=== PATIENT | female | born 1950 | race Caucasian/White ===

== ENCOUNTER 2019-10-29 09:55 | Outpatient (CLI) | payer MEDICARE, SELFPAY ==
--- NOTE | ~2019-10-29 | MM_ITS ---
EXAMINATION: MM screening [facility] BI w michael HISTORY: Screening mammogram TECHNIQUE: Craniocaudal and mediolateral oblique 3-D tomosynthesis images were obtained and synthetic 2-D images were generated. CAD analysis was submitted and interpreted. COMPARISON: Comparison to multiple prior studies sequentially, with oldest reviewed study dated 09/22. BREAST PARENCHYMAL COMPOSITION: There are scattered areas of fibroglandular density. FINDINGS: There is no evidence of suspicious mass, calcification, or architectural distortion to sugg est malignancy in either breast. There has been no suspicious interval change. IMPRESSION: 1. No mammographic evidence of malignancy. 2. Recommend routine screening mammography in one year. BI-RADS Category 1: Negative Reviewed, dictated and finalized at location A.
== END 2019-10-29 09:56 | disposition home or self-care (01) ==
PROVIDERS: PCP Family Medicine; Visit Provider Obstetrics & Gynecology
DX: Z12.31 Encounter for screening mammogram for malignant neoplasm of breast (principal)
CPT/HCPCS: 77063; 77067

== ENCOUNTER 2019-11-18 09:43 | Outpatient (CLI) | payer MEDICARE, SELFPAY ==
--- NOTE | ~2019-11-18 | CT_ITS ---
EXAMINATION: CT chest high resolution wo fl DATE: 11/18/2019 10:17 INDICATION: Cough TECHNIQUE: Computed tomography (CT) of the chest was performed without intravenous contrast. The dose -length product (DLP) was 479.98 mGy-cm. Automated exposure control and iterative reconstruction tech nique were employed. COMPARISON: None FINDINGS: There is mild dependent atelectasis. The lungs are free of focal airspace opacities. There is no pleural effusion or pneumothorax. Calcified pulmonary nodules and calcified right hilar lymph n odes are consistent with old granulomatous disease. There is a 1.8 cm nodule of the left thyroid lobe . Calcified coronary artery atherosclerosis is noted. No pathologically enlarged thoracic lymph nodes are identified. The heart size is normal. There are changes of gastric lap band surgery. The gallbla dder is surgically absent. There is moderate thoracic spondylosis. IMPRESSION: 1. No acute cardiopulmonary abnormality. Reviewed, dictated and finalized at location A.
== END 2019-11-18 09:44 | disposition home or self-care (01) ==
PROVIDERS: PCP Family Medicine; Visit Provider Internal Medicine Critical Care Medicine
DX: R05 Cough (principal)
CPT/HCPCS: 71250

== ENCOUNTER 2020-02-05 09:49 | Outpatient (CLI) | payer MEDICARE, SELFPAY | END 2020-02-05 09:50 | disposition home or self-care (01) | LOC: ANHLAB 09:50 | PROVIDERS: PCP Family Medicine; Visit Provider Internal Medicine Critical Care Medicine | DX: R05 Cough (principal); J30.9 Allergic rhinitis, unspecified | CPT/HCPCS: 36415; 82785; 86003 ==

== ENCOUNTER 2020-11-04 09:47 | Outpatient (CLI) | payer MEDICARE, SELFPAY ==
--- NOTE | ~2020-11-04 | MM_ITS ---
EXAMINATION: MM screening [facility] BI w michael HISTORY: Screening TECHNIQUE: Craniocaudal and mediolateral oblique 3-D tomosynthesis images were obtained and synthetic 2-D images were generated. CAD analysis was submitted and interpreted. COMPARISON: Comparison to multiple prior studies sequentially, with oldest reviewed study dated 09/22. BREAST PARENCHYMAL COMPOSITION: There are scattered areas of fibroglandular density. FINDINGS: There is no evidence of suspicious mass, calcification, or architectural distortion to sugg est malignancy in either breast. There has been no suspicious interval change. IMPRESSION: 1. No mammographic evidence of malignancy. 2. Recommend routine screening mammography in one year. BI-RADS Category 1: Negative Reviewed, dictated and finalized at location A.
== END 2020-11-04 09:48 | disposition home or self-care (01) ==
LOC: ANHIMG 09:54
PROVIDERS: PCP Family Medicine; Visit Provider Nurse Practitioner
DX: Z12.31 Encounter for screening mammogram for malignant neoplasm of breast (principal)
CPT/HCPCS: 77063; 77067

== ENCOUNTER 2020-12-09 16:03 | Outpatient (CLI) | payer MEDICARE, SELFPAY ==
--- NOTE | ~2020-12-09 | XR_ITS ---
XR abdomen/kub 1V 12/09/2020 16:23 INDICATION: Car scopic hematuria TECHNIQUE: KUB COMPARISON: CT dated 01/23/2013 FINDINGS: Bowel gas pattern is normal. There is no evidence of free air, mass, organomegaly, ascites or obstruction. No abnormal calculi are seen. The bones appear intact. There is a laparoscopic adj ustable gastric band. IMPRESSION: 1: No acute abdominal abnormality identified. Reviewed, dictated and finalized at location A.
--- NOTE | ~2020-12-09 | CT_ITS ---
EXAMINATION: CT abdomen pelvis wo/w con DATE: 12/09/2020 16:59 INDICATION: Microscopic hematuria TECHNIQUE: Computed tomography (CT) of the abdomen and pelvis was performed without and with 130 cc O mnipaque 350 intravenous contrast. The dose-length product was 2818.60 mGy-cm. Automated exposure con trol and iterative reconstruction technique were employed. COMPARISON: CT dated 01/23/2013. FINDINGS: Lung bases are unremarkable. Heart size normal. No significant pleural or pericardial effus ion. Small hiatal hernia. There is a laparoscopic adjustable gastric band. No renal/ureteral stones o r hydronephrosis. The liver, spleen, pancreas, adrenal glands and kidneys are unremarkable. Ureters are normal in cours e and caliber. Bladder is unremarkable. Gallbladder is surgically absent. Nonobstructive bowel gas pa ttern. Colonic diverticulosis without evidence for diverticulitis. There is osteoarthritis of the hip s. There is mild lower thoracic and lumbar spondylosis. IMPRESSION: 1. No acute abdominal abnormality. No findings to account for hematuria. Reviewed, dictated and finalized at location A.
[2020-12-09 16:36] LABS: Estimated Glomerular Filt Rate > 60
== END 2020-12-09 16:04 | disposition home or self-care (01) ==
PROVIDERS: PCP Family Medicine; Visit Provider Nurse Practitioner Adult Health
DX: R31.29 Other microscopic hematuria (principal)
CPT/HCPCS: 74018; 74178; Q9967

== ENCOUNTER 2021-11-24 09:56 | Outpatient (CLI) | payer MEDICARE, SELFPAY ==
--- NOTE | ~2021-11-24 | MM_ITS ---
EXAMINATION: MM screening [facility]ura BI w michael HISTORY: Screening mammogram TECHNIQUE: Craniocaudal and mediolateral oblique 3-D tomosynthesis images were obtained and synthetic 2-D images were generated. CAD analysis was submitted and interpreted. COMPARISON: 11/04/2020, 10/29/2019, 10/03/2018 bilateral screening mammogram examinations BREAST PARENCHYMAL COMPOSITION: There are scattered areas of fibroglandular density. FINDINGS: There is no evidence of suspicious mass, calcification, or architectural distortion to sugg est malignancy in either breast. There has been no suspicious interval change. IMPRESSION: 1. No mammographic evidence of malignancy. 2. Recommend routine screening mammography in one year. BI-RADS Category 1: Negative Reviewed, dictated and finalized at location A.
== END 2021-11-24 09:57 | disposition home or self-care (01) ==
LOC: ANHIMG 09:57
PROVIDERS: PCP Family Medicine; Visit Provider Obstetrics & Gynecology Gynecology
DX: Z12.31 Encounter for screening mammogram for malignant neoplasm of breast (principal)
CPT/HCPCS: 77063; 77067

== ENCOUNTER → 2022-09-12 11:03 | Outpatient (CLI) | payer MEDICARE, SELFPAY ==
--- NOTE | ~2022-09-12 | XR_ITS ---
Clinical Indication: Chronic cough PA and lateral views of the chest: Comparison: 02/13/2018 Findings: The lungs are clear, without evidence of focal consolidation or pleural effusion. Cardiome diastinal silhouette is within normal limits. Bones and soft tissues are unremarkable. Impression: Normal chest. Reviewed, dictated and finalized at location . Impression: Normal chest.
== END ==
PROVIDERS: PCP Family Medicine; Visit Provider Nurse Practitioner Gerontology
DX: R05.3 Chronic cough (principal)
CPT/HCPCS: 71046

== ENCOUNTER 2022-11-01 01:31 | Day surgery (SDC) | payer MEDICARE, SELFPAY ==
[2022-10-19 10:39] VITALS: BMI 40.4
[2022-11-01 11:50] VITALS: BP 149/92; PULSE 96; RESP 20; TEMP 36.5; O2SAT 97
[2022-11-01] MEDS: LACTATED RINGERS 1,000 ML 150 ML IV CONT (12:06)
--- NOTE | 2022-11-01 12:32 | WPDHPUPDATE1 ---
History and Physical Update Update Date/Time: 11/01/22 12:32 History and Physical has been reviewed, including an updated exam of the patient. There are NO changes in the patient's condition. Risks, benefits, and alternatives have been discussed and questions answered. Patient agrees to proceed with procedure.
--- NOTE | 2022-11-01 12:33 | WPDANESEPPF ---
Anes - Initial Pre Proc Eval Procedure: Operation Date: 11/01/22 13:00 Proposed Procedures p Esophagogastroduodenoscopy & Colonoscopy - Dylan Vargas MD Date/Time: 11/01/22 12:33 Surgeon: Dylan Vargas MD Pre Op Diagnosis: chronic cough, rectal bleeding Patient Data Age: 72 Gender: F Height: 1.68 m Weight: 106.1 kg Last Vital Signs Temp 97.7 F 11/01/22 11:50 Pulse 96 11/01/22 11:50 Resp 20 11/01/22 11:50 BP 149/92 H 11/01/22 11:50 Pulse Ox 97 11/01/22 11:50 O2 Del Method Room Air 11/01/22 11:50 Allergies Allergy/AdvReac Type Severity Reaction Status Date / Time No Known Allergies Allergy Verified 11/01/22 11:49 Home Medications Medication Instructions Recorded Confirmed Type calcium carbonate 600 mg calcium 600 mg PO DAILY 05/23/19 10/19/22 History (1,500 mg) tablet (Calcium) aspirin 81 mg tablet,delayed 81 mg PO .COMPLEX 01/30/22 10/19/22 History release (Adult Low Dose Aspirin) vibegron 75 mg tablet (Gemtesa) 75 mg PO DAILY 01/30/22 10/19/22 History montelukast 10 mg tablet 10 mg PO DAILY #90 tabs 09/12/22 10/19/22 Rx (Singulair) ascorbic acid (vitamin C) 500 mg 500 mg PO DAILY 10/19/22 10/19/22 History tablet losartan 50 mg-hydrochlorothiazide 1 tablet PO DAILY 10/19/22 10/19/22 History 12.5 mg tablet rosuvastatin 10 mg tablet 10 mg PO DAILY 10/19/22 10/19/22 History sodium chloride 0.65 % nasal spray 2 spray intranasal Q4H PRN other 10/19/22 10/19/22 History aerosol (Saline Nasal) zinc 50 mg tablet 50 mg PO DAILY 10/19/22 10/19/22 History Patient hx anesthesia problems: none Family hx anesthesia problems: none Results Review: All pre-operative results and documents have been reviewed as part of the pre-operative evaluation. [facility] Past Medical History Medical History Elevated BP without diagnosis of hypertension Lipid screening Morbid obesity Surgical History Surgical History H/O total hysterectomy H/O total knee replacement LAP-BAND surgery status Social History Social History Social History: Smoking status: Former smoker Tobacco type: cigarettes Second hand tobacco smoke exposure: No Alcohol intake: never Substance use: never Substance use type: does not use Living arrangements: with family Occupation/Education: retired Gender identity (if verbalized by the patient): Female Sexual Orientation (if Verbalized by the Patient): Straight or Heterosexual Spiritual care concerns: No Anes - Eval Final PreProcedure Day of Procedure 11/01/22 12:33 Patient weight: obese Heart: regular rate and rhythm Lungs: clear to auscultation Airway: Mallampati scale class II Neurological: alert and oriented Last oral intake: >/= 8 hours ASA classification: III Emergent: no Anesthetic plan: proceed Anesthesia type and monitoring: general GIVS and standard monitoring Results Review: All pre-operative results and documents have been reviewed as part of the pre-operative evaluation. Informed Consent: The patient's anesthetic plan and its attendant risks and benefits were discussed with the patient/family/POA. Questions were solicited and answers provided to the satisfaction of the patient/family/POA.
--- NOTE | 2022-11-01 12:43 | SUR.OPER ---
EGD start 1236 end 1239, Colonoscopy start 1243
[2022-11-01 12:53] VITALS: BP 134/101; PULSE 85; RESP 17; O2SAT 96
[2022-11-01 13:03] VITALS: BP 106/62; PULSE 72; RESP 23; O2SAT 99
[2022-11-01 13:13] VITALS: BP 113/64; PULSE 74; RESP 17; O2SAT 100
--- NOTE | 2022-11-21 08:15 | PM.HPGS ---
History of Present Illness History of Present Illness Consent: Risks, benefits, and alternatives have been discussed and questions answered. Patient agrees to proceed with procedure. Chief complaint: chronic cough, rectal bleeding Narrative: Natasha Dale is a 72 year old female with cough and rectal bleeding Review of Systems Constitutional: Constitutional: Denies headache(s) and Denies weakness Eyes: Eyes: Denies blurry vision ENT: Reports Normal hearing present, Denies headache(s) and Denies neck pain Cardiovascular: Cardiovascular: Denies chest pain and Denies dyspnea Respiratory: Respiratory: Denies dyspnea Gastrointestinal: Gastrointestinal: Reports no additional gastrointestinal complaints Genitourinary: Genitourinary: Denies dysuria Musculoskeletal: Musculoskeletal: Denies neck pain Integumentary/Breasts: Skin/Breast: Denies dry skin Neurologic: Reports Normal hearing present, Denies headache(s) and Denies weakness Psychiatric: Psychiatric: Denies anxiety Endocrine: Endocrine: Denies change in body appearance Hematologic/Lymphatic: Hematologic/Lymphatic: Denies easy bleeding Allergic/Immunologic: Allergic/Immunologic: Denies urticaria PMFSH Past Medical History Medical History Elevated BP without diagnosis of hypertension Lipid screening Morbid obesity Surgical History Surgical History H/O total hysterectomy H/O total knee replacement LAP-BAND surgery status Social History Social History Social History: Smoking status: Former smoker Tobacco type: cigarettes Second hand tobacco smoke exposure: No Alcohol intake: never Substance use: never Substance use type: does not use Living arrangements: with family Occupation/Education: retired Gender identity (if verbalized by the patient): Female Sexual Orientation (if Verbalized by the Patient): Straight or Heterosexual Spiritual care concerns: No Meds Home Medications and Allergies Home Medications Medication Instructions Recorded Confirmed Type calcium carbonate 600 mg calcium 600 mg PO DAILY 05/23/19 10/19/22 History (1,500 mg) tablet (Calcium) aspirin 81 mg tablet,delayed 81 mg PO .COMPLEX 01/30/22 10/19/22 History release (Adult Low Dose Aspirin) vibegron 75 mg tablet (Gemtesa) 75 mg PO DAILY 01/30/22 10/19/22 History montelukast 10 mg tablet 10 mg PO DAILY #90 tabs 09/12/22 10/19/22 Rx (Singulair) ascorbic acid (vitamin C) 500 mg 500 mg PO DAILY 10/19/22 10/19/22 History tablet losartan 50 mg-hydrochlorothiazide 1 tablet PO DAILY 10/19/22 10/19/22 History 12.5 mg tablet rosuvastatin 10 mg tablet 10 mg PO DAILY 10/19/22 10/19/22 History sodium chloride 0.65 % nasal spray 2 spray intranasal Q4H PRN other 10/19/22 10/19/22 History aerosol (Saline Nasal) zinc 50 mg tablet 50 mg PO DAILY 10/19/22 10/19/22 History omeprazole 20 mg tablet,delayed 20 mg PO .daily #30 tabs 11/01/22 11/01/22 Rx release Allergies Allergy/AdvReac Type Severity Reaction Status Date / Time No Known Allergies Allergy Verified 11/01/22 11:49 Exam Const: General: comfortable and no acute distress HENMT: Face/Nose/Sinus: Normal nares present Eyes: General: appearance normal, both eyes and all related structures Neck: Neck: no JVD Resp: Auscultation: clear to auscultation bilaterally Cardio: Rate: regular rate Rhythm: regular rhythm GI: Inspection: non-distended GI Palp: Yes Soft to palpation Skin: General skin exam: normal color Neuro: General: gait normal Speech: normal speech Extrem: General: normal to inspection Psych: Mental Status: mental status grossly normal Assessment and Plan Assessment and plan (1) Chronic cough: Code(s): R05.3 - Chronic cough Status: Acute A
== END 2022-11-01 13:23 | disposition home or self-care (01) ==
PROVIDERS: PCP Family Medicine; Visit Provider Internal Medicine Gastroenterology
PROC: 0DJ08ZZ Inspection of Upper Intestinal Tract, Via Natural or Artificial Opening Endoscopic (ICD-10-PCS; CPT 43235; principal; 2022-11-01 13:00)
DX: Z12.11 Encounter for screening for malignant neoplasm of colon (principal); K57.30 Diverticulosis of large intestine without perforation or abscess without bleeding; K64.8 Other hemorrhoids; K92.1 Melena; K44.9 Diaphragmatic hernia without obstruction or gangrene; K29.50 Unspecified chronic gastritis without bleeding; Z79.82 Long term (current) use of aspirin; E66.9 Obesity, unspecified; Z68.37 Body mass index [BMI] 37.0-37.9, adult; Z87.891 Personal history of nicotine dependence; Z98.84 Bariatric surgery status
CPT/HCPCS: 43239; G0121; 88305; J2704; J7120

== ENCOUNTER 2023-04-10 09:42 | Outpatient (CLI) | payer MEDICARE, SELFPAY ==
--- NOTE | ~2023-04-10 | MM_ITS ---
EXAMINATION: MM screening [facility] BI w michael HISTORY: Screening TECHNIQUE: Craniocaudal and mediolateral oblique 3-D tomosynthesis images were obtained and synthetic 2-D images were generated. CAD analysis was submitted and interpreted. COMPARISON: Comparison to multiple prior studies sequentially, with oldest reviewed study dated 09/25. BREAST PARENCHYMAL COMPOSITION: Breast composed of scattered areas of fibroglandular density FINDINGS: There is no evidence of suspicious mass, calcification, or architectural distortion to sugg est malignancy in either breast. There has been no suspicious interval change. IMPRESSION: 1. No mammographic evidence of malignancy. 2. Recommend routine screening mammography in one year. BI-RADS Category 1: Negative Reviewed, dictated and finalized at location A. 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
== END 2023-04-10 09:43 | disposition home or self-care (01) ==
LOC: ANHIMG 09:44
PROVIDERS: PCP Family Medicine; Visit Provider Nurse Practitioner
DX: Z12.31 Encounter for screening mammogram for malignant neoplasm of breast (principal)
CPT/HCPCS: 77063; 77067

== ENCOUNTER 2023-08-21 14:34 | Outpatient (CLI) | payer MEDICARE, SELFPAY ==
--- NOTE | ~2023-08-21 | DEXA_ITS ---
Bone Density Report Name: KWAME CASTANEDA Age: 73 Sex: Female Ethnicity: White Date of : 1950 Indication: postmenopausal; screening for osteoporosis; height loss; history of glucocorticoids; asthma or emphysema; hysterectomy; Referring Provider: SAEED, FRANKI Study: Bone densitometry was performed. Exam Date: August 21, 2023 Accession number: [id number] Bone Density: Region BMD T-score Z-score Classification AP Spine(L1, L3, L4) 1.173 1.1 3.5 Normal Femoral Neck (Left) 0.811 -0.3 1.7 Normal Total Hip (Left) 1.097 1.3 3.0 Normal Femoral Neck (Right) 0.907 0.5 2.6 Normal Total Hip (Right) 1.088 1.2 2.9 Normal Total Hip Mean 1.092 1.3 3.0 Normal World Health Organization criteria for BMD impression classify patients as: Normal (T-score at or above -1.0), Osteopenia (T-score between -1.0 and -2.5), or Osteoporosis (T-score at or below -2.5). 10-year Fracture Risk: FRAX not reported because: All T-scores for Spine Total, Hip Total, Femoral Neck at or above -1.0 Clinical Information Provided by Patient: Has taken Glucocorticoids Has used the following medications: Vitamin D, Calcium Has the following medical conditions: Asthma or Emphysema, Hysterectomy Patient maximum height was 66 No regular weight bearing exercise Does not regularly consume dairy products Drinks caffeinated beverages Onset of menses at age 9 Number of children 2 Impression: The patient has normal bone mass. The patient has risk factors, including: history of glucocorticoid therapy. Discussion: BONE DENSITY IS ABOVE THE MINIMUM DESIRABLE LEVEL AT ALL SKELETAL SITES TESTED. This patient?s bone mineral density is above the minimum desirable level (T-score -1.0 or better) at all sites measured. The patient should follow a healthful lifestyle (good nutrition with adequate calcium and vitamin D, and appropriate weight-bearing exercise). Follow-Up: Consider repeating this study in 5 years or sooner if there is some new clinical indication. Reported by: NATALIA on 08/21/2023 3:13:00 PM. Reviewed, dictated and finalized at location AAndreas [facility]
== END 2023-08-21 14:35 | disposition home or self-care (01) ==
PROVIDERS: PCP Family Medicine; Visit Provider Nurse Practitioner
DX: Z78.0 Asymptomatic menopausal state (principal)
CPT/HCPCS: 77080

== ENCOUNTER 2024-05-02 09:14 | Outpatient (CLI) | payer MEDICARE, SELFPAY ==
--- NOTE | ~2024-05-02 | MM_ITS ---
EXAMINATION: MM screening [facility] BI w michael HISTORY: Screening mammogram TECHNIQUE: Craniocaudal and mediolateral oblique 3-D tomosynthesis images were obtained and synthetic 2-D images were generated. CAD analysis was [place] BREAST PARENCHYMAL COMPOSITION: The breasts are almost entirely fatty. FINDINGS: There is no evidence of suspicious mass, calcification, or architectural distortion to sugg est malignancy in either breast. There has been no suspicious interval change. IMPRESSION: 1. No mammographic evidence of malignancy. 2. Recommend routine screening mammography in one year. BI-RADS Category 1: Negative Reviewed, dictated and finalized at location A. 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
== END 2024-05-02 09:15 | disposition home or self-care (01) ==
LOC: ANHIMG 09:16
PROVIDERS: PCP Family Medicine; Visit Provider Nurse Practitioner
DX: Z12.31 Encounter for screening mammogram for malignant neoplasm of breast (principal)
CPT/HCPCS: 77063; 77067

== ENCOUNTER 2024-07-24 11:29 | Outpatient (CLI) | payer MEDICARE, SELFPAY ==
--- NOTE | ~2024-07-24 | XR_ITS ---
EXAMINATION: XR chest 2V 07/24/2024 11:39 INDICATION: Cough PROCEDURE: 2 view chest COMPARISON: Comparison to multiple prior studies sequentially, with oldest reviewed study dated 04/04. FINDINGS: The lungs are clear. The cardiomediastinal silhouette is within normal limits. There are no pleural effusions. There is no pneumothorax suspected. IMPRESSION: 1: NO ACUTE CARDIOPULMONARY DISEASE. Reviewed, dictated and finalized at location B. EU MANAGER
== END 2024-07-24 11:30 | disposition home or self-care (01) ==
LOC: MICIMG 11:30
PROVIDERS: PCP Family Medicine; Visit Provider Physician Assistant
DX: R05.9 Cough, unspecified (principal)
CPT/HCPCS: 71046

== ENCOUNTER 2025-05-05 09:36 | Outpatient (CLI) | payer MEDICARE, SELFPAY ==
--- NOTE | ~2025-05-05 | MM_ITS ---
EXAMINATION: MM screening laura BI w michael HISTORY: Screening. TECHNIQUE: Craniocaudal and mediolateral oblique 3-D tomosynthesis images were obtained and synthetic 2-D images were generated. CAD analysis was submitted and interpreted. COMPARISON: 2023, 2022, and 2021. BREAST PARENCHYMAL COMPOSITION: Not Dense: There are scattered areas of fibroglandular FINDINGS: No suspicious masses are seen. There are no suspicious calcifications. No unexplained architectural distortion is seen. There are no skin or nipple abnormalities identified. There is no adenopathy seen on the images submitted. IMPRESSION: No mammographic evidence to suggest malignancy is seen. The patient may return to screening mammography as per ACR guidelines. BI-RADS 1 - Negative. Reviewed, dictated and finalized at location B. [facility]
--- OUTSIDE RECORDS SUMMARY | 2025-05-05 10:14 | XMS_ITS | Clinical Summary ---
Author Organization [facility] [place] [facility] [address] Address [address] [place] [address] Care Team Providers Care Health Record Technician Name Role Phone Brad Gaffney MD Primary Care Provider [phone] Brad Gaffney MD Unavailable [phone] Allergies No known active allergies Medications aspirin (ASPIR-81) 81 mg tablet take 1 Tablet by oral route every day 0 0 5 Active Additional Information Patient taking differently:81 mg,Indications: pt takes 2 times a week, Reported on 05/10/2018 UNABLE TO FIND Gummy Multivitamins daily Active omeprazole (PriLOSEC) 20 mg capsule Take 20 mg by mouth daily Active fluticasone furoate-vilant Brady (BREO ELLIPTA) 100-25 mcg/dose diskus inhaler Inhale 1 puff daily Rinse mouth with water after use. Do not swallow. Active OXYBUTYNIN CHLORIDE, BULK, MISC 1 Active montelukast (SINGULAIR) 10 mg tablet 1 Active losartan-hydro CHLOROthiazide (HYZAAR) 50-12.5 mg per tablet 1 Active Active Problems Problem Noted Date Diagnosed Date Chronic eczematous otitis externa of left ear Nausea with vomiting 07/06/2015 Obesity with body mass index 30 or greater 01/22 History of bariatric surgery 09/23/2010 Former smoker 08/08/2010 Morbid obesity 06/07/2010 Surgical History Surgery Date Site/Laterality Comments LAPAROSCOPIC GASTRIC BANDING REPLACEMENT TOTAL KNEE BILATERAL Bilatera l Medical History Medical History Date Comments Asthma HL (hearing loss) Family History Medical History Relation Name Comments Obesity Brother Family history of obesity - (Added by TW Dottie) Relation Name Status Comments Brother Social History Tobacco Use Types Packs/Day Years Used Date Smoking Tobacco: Former Smokeless Tobacco: Never Alcohol Use Standard Drinks/Week Comments No 0 (1 standard drink = 0.6 oz pur e alcohol) Comments Unknown Sex and Gender Information Value Date Recorded Sex Assigned at Not on file Legal Sex Female 8:01 PM LOG 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 Gender Identity Not on file Sexual Orientation Not on file Last Filed Vital Signs Vital Sign Reading Time Taken Comments Blood Pressure 144/87 05/09/2021 2:23 PM LOG TUMBLER Pulse 89 05/09/2021 2:23 PM LOG TUMBLER Temperature 36.1 C (97 F) 05/09/2021 2:23 PM LOG TUMBLER Respiratory Rate - - Oxygen Saturation - - Inhaled Oxygen Concentration - - Weight 105.1 kg (231 lb 9.6 oz) 05/09/2021 2:23 PM LOG TUMBLER Height 167.6 cm (5' 6) 05/09/2021 2:23 PM LOG TUMBLER Body Mass Index 37.38 05/09/2021 2:23 PM LOG TUMBLER Plan of Treatment Not on file Insurance [facility] MEDICARE ADVANTAGE [facility] MEDICARE ADVANTAGE Care Teams Health Record Technician Relationship Specialty Start Date End Date Brad Gaffney MD [address] [place] [address] PCP - General 09/20/16 Brad Gaffney MD [address] [place] [address] 09/20/16
--- OUTSIDE RECORDS SUMMARY | 2025-05-05 10:14 | XMS_ITS | Clinical Summary ---
Author Organization [facility] Address [address] [place] [address] Care Team Providers Care Package Maker Name Role Phone Kelsea Dueñas MD Primary Care Provider + Source Comments [facility],non-owned Affiliates and Associated Physician Practices is amultiple site organization consisting of ambulatory clinics and hospital sitesin [place], [place], [place] and [place]. This disclosure is being madepursuant to the Care Everywhere program and may not contain all information available regarding this patient. Last updated 18.[facility] Allergies No known active allergies Medications * Be aware that medications may not be up to date on this document. Alwaysverify current medications with the patient. Calcium Carbonate-Vit D-Min (CALCIUM 1200 PO) Take 1 tablet by mouth once daily Active Multiple Vitamins-Minera ls (ZINC PO) Take 50 mg by mouth once daily Active Multiple Vitamins-Minera ls (MULTIPLE VITAMINS/WOMENS PO) Take 1 tablet by mouth once daily Active Ascorbic Acid (VITAMIN C PO) Take 500 mg by mouth once daily Active VITAMIN D PO Take 50 mg by mouth once daily Active Polyethylene Glycol 3350 (MIRALAX PO) Take by mouth once daily Active Mometasone Furo-Formoterol Fum (DULERA IN) Inhale by mouth as directed Active Spacer/Aero-Hol ding Chambers (AEROCHAMBER PLUS DIGNA-VU LARGE) as directed 02/05/2020 Active montelukast (SINGULAIR) 10 MG tablet Take 1 tablet by mouth once daily 05/30/2020 Active azelastine (ASTELIN) 0.1 % nasal spray [place] 1 spray into each nostril every 12 hours 05/03/2020 Active oxybutynin CR 24hr (DITROPAN-XL) 5 MG tablet Take 1 tablet by mouth once daily 30 tablet 11 06/09/2020 Active triamcinolone acetonide (KENALOG) 0.1 % ointmentIndicat ions:Lichen sclerosus et atrophicus of the vulva Apply to external vulvar tissues twice daily. 30 g 80 g 2 08/04/2020 Active Active Problems Problem Noted Date Diagnosed Date Lichen sclerosus et atrophicus of the vulva 08/2020 Chronic eczematous otitis externa of left ear Nausea with vomiting 07/06/2015 Obesity with body mass index 30 or greater 01/22 History of bariatric surgery 09/23/2010 Former smoker 08/08/2010 Morbid obesity 06/07/2010 Encounters Date Type Department Care Team Description 04/24/2025 Transcribe Orders [facility] - Centralized Scheduling [address] [place] [id number] Megan Junior MD Lichen sclerosus from Last 3 Months Immunizations Immunization Administration Dates Next Due INFLUENZA VACCINE, QUADR. (F LUZONE; FLULAVAL; FLUARIX; AFLURIA QUADRIVALENT; 6MO+), 0.5 ML (IIV4) 02/26/2020 Family History Medical History Relation Name Comments Hypertension Father Cancer - Breast Mother Relation Name Status Comments Father Mother Social History Tobacco Use Types Packs/Day Years Used Date Smoking Tobacco: Former Cigarettes 0 Q uit: 1980 Smokeless Tobacco: Never Alcohol Use Standard Drinks/Week Comments Never 0 (1 standard drink = 0.6 oz pur e alcohol) AUDIT-C Answer Date Recorded Q1: How often do you have a drink containing alc ohol? Never 04/15/2020 Average Number of Drinks Not on file 020 Frequency of Binge Drinking Not on file 04/04 Comments No Sex and Gender Information Value Date Recorded Sex Assigned at Not on file Legal Sex Female 2:03 PM CDT Gender Identity Not on file Sexual Orientation Not on file Last Filed Vital Signs Vital Sign Reading Time Taken Comments Blood Pressure 138/90 08/04/2020 8:35 AM ZOOKEEPER Pulse 90 06/09/2020 3:11 PM ZOOKEEPER Temperature 36.6 C (97.8 F) 06/09/2020 3:11 PM ZOOKEEPER Respiratory Rate - - Oxygen Saturation - - Inhaled Oxygen Concentration - - Weight 118.4 kg (261 lb) 08/04/2020 8:35 AM ZOOKEEPER Height 167.6 cm (5' 6) 08/04/2020 8:35 AM ZOOKEEPER Body Mass Index 42.13 08/04/2020 8:35 AM ZOOKEEPER Plan of Treatment Health Maintenance Due Date Last Done Comments BONE DENSITY TESTING 1950 HEPATITIS C SCREENING 04/06/1967 DTAP/TDAP/TD VACCINES (1 - Tdap) 1968 PNEUMOCOCCAL VACCINE 50+ (1 of 1 - PCV) 1999 ZOSTER VACCINE (1 of 2) 1999 Respiratory Syncytial Virus (RSV) Vaccine Pt: or over 60 yrs (1 - 1-dose 75+ series) 2024 DEPRESSION SCREENING 06/04/2024 MEDICARE AWV CALENDAR YEAR 2024 COVID-19 VACCINE (1 - 2024-2 6 season) 2025 INFLUENZA VACCINE (#1) 2025 02/26/2020 HEPATITIS B VACCINE Aged Out No longe r eligible based on patient's age to complete this topic HIB VACCINE Aged Out No longer eligi ble based on patient's age to complete this topic HPV VACCINE Aged Out No longer eligi ble based on patient's age to complete this topic MENINGOCOCCAL (Group B) VACC INE SHARED DECISION-MAKING Aged Out No longer eligibl e based on patient's age to complete this topic MENINGOCOCCAL GROUPS A/C/Y/W VACCINE Aged Out No longer eligible b ased on patient's age to complete this topic Insurance [employer] MEDICARE ADV Care Teams Package Maker Relationship Specialty Start Date End Date Kelsea Dueñas MD [address] [facility] [address] [place] [address] PCP - General 06/09/20
== END 2025-05-05 09:37 | disposition home or self-care (01) ==
PROVIDERS: PCP Family Medicine
DX: Z12.31 Encounter for screening mammogram for malignant neoplasm of breast (principal)
CPT/HCPCS: 77063; 77067